=== PATIENT | male | born 1960 | race Caucasian/White ===

== ENCOUNTER → 2023-12-12 11:30 | Outpatient (REF) | payer MEDICARE, OTHER, SELFPAY | LOC: HWRAD 11:30 | PROVIDERS: ATTENDING PHYSICIAN Student in an Organized Health Care Education/Training Program | DX: M25.542 Pain in joints of left hand (principal) | CPT/HCPCS: 73130 ==

== ENCOUNTER 2025-01-01 06:24 | Day surgery (SDC) | payer MEDICARE, OTHER, SELFPAY | END 2025-01-01 12:03 | disposition home or self-care (01) | LOC: GI 06:24 | PROVIDERS: ATTENDING PHYSICIAN Internal Medicine Gastroenterology | DX: R19.4 Change in bowel habit (principal); K52.9 Noninfective gastroenteritis and colitis, unspecified; Q43.8 Other specified congenital malformations of intestine; K64.8 Other hemorrhoids; K52.839 Microscopic colitis, unspecified; K52.832 Lymphocytic colitis | CPT/HCPCS: 45380; 88305; 88342 ==